=== PATIENT | male | born 1980 | race Hispanic/Latino ===

== ENCOUNTER 2017-08-07 15:49 | Emergency (ER) | payer BC, OTHER ==
[~2017-08-07] VITALS: Ht 165.1 cm; Wt 72.6 kg
[~2017-08-07 15:49] MED LIST: XANAX0.5 MG PO; ZOLOFT50 MG PO
--- OUTSIDE RECORDS SUMMARY | 2017-08-07 15:52 | XMS REPORT ---
Author Author [facility] Address Unknown Phone Unavailable Care Team Providers Care Engineer Sergeant Name Role Phone STEVE AVILA Unavailable Unavailable Problems This patient has no known problems. Allergies, Adverse Reactions, Alerts This patient has no known allergies or adverse reactions. Medications This patient has no known medications. Results Test Description Test Time Test Comments Text Results Atomic Results Result Comments CHEST SINGLE (PORTABLE) [place] [address] Patient Name: KRANTHI WAGNER MR #: [id number] : 1980 Age/Sex: 36/M Req #: [id number] Adm Physician: Ordered by: STEVE AVILA MD Report #: [id number] Location: ER Room/Bed: Procedure: [id number] DX/CHEST SINGLE (PORTABLE) Exam Date: 02/12/17 Exam Time: 1110 REPORT STATUS: Signed PROCEDURE: CHEST SINGLE (PORTABLE) COMPARISON: None. INDICATIONS: LEFT ARM PAIN, RADIATES TO LEFT CHEST FINDINGS: LUNGS: No consolidations or edema. PLEURA: No effusions or pneumothorax. HEART T MEDIASTINUM: The heart is within normal size-limits. BONES T SOFT TISSUES: No acute findings. CONCLUSION: No acute thoracic abnormality. Dictated by: Klaudia Issa M.D. on 02/12/2017 at 11:36 Electronically approved by: Klaudia Issa M.D. on 02/12/2017 at 11:36 Dictated By: KLAUDIA ISSA MD [id number] Transcribed By: CECILIA on 02/12/171135 COPY TO : STEVE AVILA MD
[2017-08-07 16:50] LABS: AMPHETAMINES SCREEN,URINE NEGATIVE (NEGATIVE); BENZODIAZEPINES SCREEN,URINE POSITIVE (NEGATIVE); PHENCYCLIDINE SCREEN,URINE NEGATIVE (NEGATIVE)
[2017-08-07 16:57] LABS: BASOPHILS % 0.4 % (0.0-1.0); EOSINOPHILS # (AUTO) 0.2 (0.0-0.4); EOSINOPHILS % 1.5 % (0.0-6.0); HEMATOCRIT 44.4 % (38.2-49.6); HEMOGLOBIN 15.4 g/dL (14.0-18.0); LYMPHOCYTES # (AUTO) 4.5 (1.0-3.2); MEAN CORPUSCULAR HEMOGLOBIN 31.6 pg (28-32); MEAN CORPUSCULAR HGB CONC 34.7 g/dL (31-35); MEAN CORPUSCULAR VOLUME 91.2 fL (81-99); MONOCYTES # (AUTO) 0.5 (0.2-0.8); MONOCYTES % 4.5 % (4.4-11.3); NEUTROPHILS % 49.3 % (38.7-80.0); PLATELET COUNT 197 x10e3/uL (140-360); RED BLOOD COUNT 4.87 x10e6/uL (4.3-5.7)
[2017-08-07 17:16] LABS: ACETAMINOPHEN < 3 ug/mL (10-30); SALICYLATE < 5.0 mg/dL (0-30)
[2017-08-07 17:19] LABS: ALANINE AMINOTRANSFERASE 44 IU/L (0-55); ALBUMIN 3.8 g/dL (3.5-5.0); ALBUMIN/GLOBULIN RATIO 1.2 (0.8-2.0); ALKALINE PHOSPHATASE 101 IU/L (40-150); BLOOD UREA NITROGEN 11 mg/dL (7-26); BUN/CREATININE RATIO 14 (6-25); CALCIUM 9.4 mg/dL (8.4-10.2); CARBON DIOXIDE 24 mmol/L (22-29); CHLORIDE 107 mmol/L (98-107); CREATINE KINASE 147 IU/L (30-200); CREATININE, SERUM 0.78 mg/dL (0.72-1.25); EST GLOMERULAR FILTRATION RATE > 60 ML/MIN (60-); GLUCOSE 99 mg/dL (74-118); SODIUM 140 mmol/L (136-145)
--- NOTE | 2017-08-07 18:49 | Diagnostic Imaging Report ---
History: Unsteady gait, AMS Comparison studies: None Technique: Axial images were obtained from the skull base to the vertex. Coronal and sagittal reconstructions obtained from the axial data. Findings: Scalp/skull: No abnormalities. No fractures, blastic or lytic lesions. Extra-axial spaces: No masses. No fluid collections. Brain sulci: Appropriate for age. Ventricles: Normal in size and configuration. No hydrocephalus. Parenchyma: No abnormal densities. No masses, hemorrhage, acute or chronic cortical vascular insults. Sellar/suprasellar region: No abnormalities Craniocervical junction: Patent foramen magnum. No Chiari one malformation. IMPRESSION: No abnormalities . . Signed by: DR Tristan Nolasco M.D. on 08/07/2017 6:46 PM
== END 2017-08-07 20:37 | disposition home or self-care (01) ==
LOC: ER 15:52
DX: R42 Dizziness and giddiness (principal); R11.0 Nausea; R26.0 Ataxic gait; G89.29 Other chronic pain; F41.9 Anxiety disorder, unspecified
CPT/HCPCS: 36415; 70450; 80053; 80307; 80320; 80329; 82140; 82550; 82553; 84484; 85025; 93005; 99283